=== PATIENT | male | born 1980 | race Two or more races ===

== ENCOUNTER 2024-10-16 12:19 | Emergency (ER) | payer MEDICARE, OTHER ==
[~2024-10-16] VITALS: Ht 160 cm; Wt 101.0 kg
--- NOTE | 2024-10-16 13:22 | ED.PDOC ---
Psychiatric HPI Comments 44 year old male brought in by executive pastry chef presents to the ED with chief complaint of mental health concern. Patient is being brought in by manager functional of facility where he lives in a home for parolees. Rampman reports that the patient has recently not been taking his medication appropriately, sometimes taking more or less than the instructions list. Rampman relays that the patient was noted to be more aggressive lately with the other residents and when everyone was drug tested, the patient tested positive for methamphetamine, despite not knowing how he was able to acquire it. Rampman states patient is on a "blackout" and is not allowed outside the home. Rampman notes patient is about to join a program where nursing staff can ensure he takes his medication on time and as directed, however, they required the patient to get a refill for his levothyroxine before admission. Patient reports that he misses his doses at times because he forgets. Patient is currently taking Suboxone, Divalproex, Benztropine Mesylate, Levothyroxine, Haloperidol, and Zyprexa. Patient denies any SI, HI, VH, or AH. Chief Complaint: Mental Health Time Seen by MD: 13:16 Primary Care Provider: NONE Reviewed Notes: Nurses Notes, Medications, Allergies Information Source: Patient Mode of Arrival: Ambulatory Severity: Able to Care for Self, Able to Control Self Severity of Pain: None Severity of Mental Status: Mild Severity of Symptoms: Mild Timing: Days Duration: Since onset Prehospital treatment: None Presents with: Bizarre Behavior Circumstance: Medical Clearance, Causing a Disturbance History of: Schizophrenia, Bipolar, Substance Abuse Past Medical History PAST MEDICAL HISTORY: Schizophrenia, Thyroid Past Medical History (Other): BPD Surgical History: Denies all surgeries Family History Family History: Reviewed,noncontributory to illness Social History Smoker: Cigarettes Alcohol: Occasionally Drugs: Methamphetamine Lives In: Assisted Care Constitutional: denies: chills, diaphoresis, fatigue, fever, malaise, sweats, weakness, others EENTM: denies: blurred vision, double vision, ear bleeding, ear discharge, ear drainage, ear pain, ear ringing, eye pain, eye redness, hearing loss, mouth pain, mouth swelling, nasal discharge, nose bleeding, nose congestion, nose pain, photophobia, tearing, throat pain, throat swelling, voice changes, others Respiratory: denies: cough, hemoptysis, orthopnea, SOB at rest, shortness of breath, SOB with excertion, stridor, wheezing, others Cardiovascular: denies: chest pain, dizzy spells, diaphoresis, Dyspnea on exertion, edema, irregular heart beat, left arm pain, lightheadedness, palpitations, PND, syncope, others Gastrointestinal: denies: abdomen distended, abdominal pain, blood streaked bowels, constipated, diarrhea, dysphagia, difficulty swallowing, hematemesis, melena, nausea, poor appetite, poor fluid intake, rectal bleeding, rectal pain, vomiting, others Genitourinary: denies: burning, dysuria, flank pain, frequency, hematuria, incontinence, penile discharge, penile sore, pain, testicle pain, testicle swelling, urgency, others Neurological: denies: dizziness, fainting, headache, left sided numbness, left sided weakness, numbness, paresthesia, pre-existing deficit, right sided numbness, right sided weakness, seizure, speech problems, tingling, tremors, weakness, others Musculoskeletal: denies: back pain, gout, joint pain, joint swelling, muscle pain, muscle stiffness, neck pain, others Integumetry: denies: bruises, change in color, change in hair/nails, dryness, laceration, lesions, lumps, rash, wounds, others Allergic/Immunocompromised: denies: Difficulty Healing, Frequent Infections, Hives, Itching, others Hematologic/Lymphatic: denies: anemia, blood clots, easy bleeding, easy bruising, swollen glands, others Endocrine: denies: excessive hunger, excessive sweating, excessive thirst, excessive urination, flushing, intolerance to cold, intolerance to heat, unexplained weight gain, unexplained weight loss, others Psychiatric: denies: anxiety, bipolar disorder, depression, hopeless, panic disorder, schizophrenia, sleepless, suicidal, others All Other Systems: Reviewed and Negative Physical Exam General Appearance: No Apparent Distress, Obese HEENT: Normal ENT Inspection, PERRL/EOMI Neck: Full Range of Motion, Non-Tender, Normal, Normal Inspection Respiratory: Chest Non-Tender, Lungs Clear, No Accessory Muscle Use, No Respiratory Distress, Normal Breath Sounds Cardiovascular: No Edema, No JVD, No Murmur, No Gallop, Normal Peripheral Pulses, Regular Rate/Rhythm Breast Exam: Deferred Gastrointestinal: No Organomegaly, Non Tender, No Pulsatile Mass, Normal Bowel Sounds, Soft Genitalia: Deferred Pelvic: Deferred Rectal: Deferred Extremities: No calf tenderness, Normal capillary refill, Normal inspection, Normal range of motion, Non-tender, No pedal edema Musculoskeletal : Apperance: Normal Neurologic: Alert, package delivery driver II-XII nml as Tested, No Motor Deficits, Normal Affect, Normal Mood, No Sensory Deficits Cerebellar Function: Normal Reflexes: Normal Skin: Dry, Normal Color, Warm Peripheral Pulses: 1+ carotid (R), 1+ carotid (L) Lymphatic: No Adenopathy Was a procedure done? Was a procedure done?: No Psych Differential Dx Psych. Differential Dx: Anxiety, Bipolar Disorder, Schizoprenia OD Differential Dx: Alcohol Abuse, Bipolar Disorder, Hallucinations, Schizophrenia, Substance Abuse Suicidal Differential Dx: Alcohol Abuse, Bipolar Disorder, Schizoprenia, Substance Abuse Intoxication Differential Dx: Hallucinations, Drug-Induced Psychosis, Electrolyte Imbalance, Schizophrenia, Substance Abuse Disorder, Thyrotoxicosis X-Ray, Labs, Meds, VS Vital Signs Date Time Temp Pulse Resp B/P (MAP) Pulse Ox O2 Delivery O2 Flow Rate FiO2 10/16/24 16:49 94 10/16/24 13:35 98.0 112 20 137/91 (106) 93 98.0 10/16/24 13:35 112 20 93 Room Air 10/16/24 12:39 97.7 119 16 120/92 (101) 95 97.7 Lab Test 10/16/24 17:06 10/16/24 13:29 10/16/24 13:28 Range/Units Troponin I High Sensitivity < 3 L </=54 ng/L White Blood Count 5.9 4.4-10.8 10^3/uL Red Blood Count 4.95 4.5-5.90 10^6/uL Hemoglobin 14.1 13.5-17.5 g/dL Hematocrit 42.4 41.0-53.0 % Mean Corpuscular Volume 85.7 80.0-100.0 fL Mean Corpuscular Hemoglobin 28.5 28.0-32.0 pg Mean Corpuscular Hemoglobin Concent 33.3 32.0-36.0 g/dL Red Cell Distribution Width 13.8 11.8-14.3 % Platelet Count 176 140-450 10^3/uL Mean Platelet Volume 8.8 6.9-10.8 fL Neutrophils (%) (Auto) 63.1 37.0-80.0 % Lymphocytes (%) (Auto) 19.5 10.0-50.0 % Monocytes (%) (Auto) 14.2 H 0.0-12.0 % Eosinophils (%) (Auto) 2.8 0.0-7.0 % Basophils (%) (Auto) 0.4 0.0-2.0 % Neutrophils # (Auto) 3.7 1.6-8.6 10 ^3/uL Lymphocytes # (Auto) 1.2 0.4-5.4 10 ^3/uL Monocytes # (Auto) 0.8 0-1.3 10 ^3/uL Eosinophils # (Auto) 0.2 0-0.8 10 ^3/uL Basophils # (Auto) 0 0-0.2 10 ^3/uL Nucleated Red Blood Cells 0.2 % Sodium Level 129 L 136-145 mmol/L Potassium Level 4.6 3.5-5.1 mmol/L Chloride Level 95 L 98-107 mmol/L Carbon Dioxide Level 26 20-31 mmol/L Anion Gap 8 5-15 Blood Urea Nitrogen 10 9-23 mg/dL Creatinine 1.17 0.700-1.30 mg/dL Glomerular Filtration Rate Calc 79 >90 mL/min BUN/Creatinine Ratio 8.5 L 10.0-20.0 Serum Glucose 528 *H 74-106 mg/dL Calcium Level 10.6 H 8.7-10.4 mg/dL Magnesium Level 2.1 1.6-2.6 mg/dL Total Bilirubin 0.4 0.2-1.0 mg/dL Aspartate Amino Transferase (AST) 28 13-40 U/L Alanine Aminotransferase (ALT) 48 H 7-40 U/L Alkaline Phosphatase 188 H 46-116 U/L Total Protein 8.7 H 5.7-8.2 g/dL Albumin 4.9 H 3.2-4.8 g/dL Thyroid Stimulating Hormone (TSH) 2.82 0.55-4.78 uIU/mL Urine Color Light-yellow Yellow Urine Clarity Clear Clear Urine pH 6.5 5.0-9.0 Urine Specific [place] 1.031 1.001-1.035 Urine Protein Negative Negative Urine Ketones Negative Negative Urine Blood Negative Negative /uL Urine Nitrite Negative Negative Urine Bilirubin Negative Negative Urine Urobilinogen Normal Negative mg/dL Urine Leukocyte Esterase Negative Negative /uL Urine RBC <1 0 - 3 /hpf Urine Microscopic WBC < 1 0-3 /HPF Urine Squamous Epithelial Cells None seen <5 /hpf Urine Bacteria None seen None Seen /hpf Urine Glucose 4+ H Normal mg/dL Urine Opiates Screen Neg NEGATIVE Urine Fentanyl Screen Neg NEGATIVE Urine Barbiturates Screen Neg NEGATIVE Urine Phencyclidine Screen Neg NEGATIVE Urine Amphetamines Screen Pos NEGATIVE Urine Benzodiazepines Screen Neg NEGATIVE Urine Cocaine Screen Neg NEGATIVE Urine Cannabinoids Screen Neg NEGATIVE Current Medications Medications (Trade) Dose Ordered Sig/Lizzeth Route Start Time Stop Time Status Last Admin Sodium Chloride 1,000 ml @ 1,000 mls/hr Q1H ONCE IV 10/16/24 14:30 10/16/24 15:29 DC 10/16/24 14:50 Insulin Human Lispro (HumaLOG) 10 units ONCE ONCE SC 10/16/24 16:30 10/16/24 16:31 DC 10/16/24 16:41 X-Ray, Labs, Meds, VS Comment Course in the emergency department uneventful patient came in because of medication refill butthis patient is schizophrenic and bipolar and has been using amphetamine which induced a bout of psychosis Patient taking multiple medications Suboxone divalproex benztropine levothyroxine haloperidol and Zyprexa CBC normal Urine shows 4+ glucose UDS positive for amphetamine CMP blood sugar 528 Magnesium 2.1 TSH 2.82 Patient will have refill of his TSH At this time in the emergency department patient is stable dr mendoza to follow Time of 1ST Reevaluation: 14:16 Reevaluation 1ST: Unchanged Time of 2ND Reevaluation: 18:17 Reevaluation 2ND: Improved Consultation: PCP, Psychiatry Patient Education/Counseling: Diagnosis, Treatment, Prognosis, Need For Follow Up Family Education/Counseling: Diagnosis, Treatment, Prognosis, Need For Follow Up Departure 1 Departure Time of Disposition: 18:17 Impression: Primary Impression: Drug-induced psychotic disorder with complication Additional Impressions: Amphetamine abuse Schizophrenia Bipolar disorder Hypothyroidism (acquired) New onset type 2 diabetes mellitus Morbid obesity due to excess calories Hyperglycemia Disposition: 30 STILL A PATIENT Condition: Fair e-Prescriptions Levothyroxine Sodium (Levoxyl) 50 Mcg Tab 1 TAB PO DAILY for 90 Days, #90 TAB 5 Refills Prov: ANNAMARIE MCHGUH MD 10/16/24 Discharged With: Self, Legal Guardian Critical Care Note Critical Care Time?: No Stability Stability form required: Yes Heart Score Heart Score: Heart Score Response (Comments) Value History Slightly Suspicious 0 EKG Normal 0 Age <45 0 Risk Factors 1 or 2 risk factors 1 Troponin Normal limit 0 Total 1 I personally scribed for ANNAMARIE MCHUGH MD ([email or web address]) on 10/16/24 at 13:22. Electronically submitted by Freddy Velazquez ([email or web address]). ANNAMARIE MCHUGH MD Oct 16, 2024 13:22
[2024-10-16 13:43] LABS: Basophils # (auto) 0 10 ^3/uL (0-0.2); Basophils % (auto) 0.4 % (0.0-2.0); Eosinophils # (auto) 0.2 10 ^3/uL (0-0.8); Eosinophils % (auto) 2.8 % (0.0-7.0); Hematocrit 42.4 % (41.0-53.0); Hemoglobin 14.1 g/dL (13.5-17.5); Lymphocytes # (auto) 1.2 10 ^3/uL (0.4-5.4); Lymphocytes % (auto) 19.5 % (10.0-50.0); Mean Corpuscular Hemoglobin 28.5 pg (28.0-32.0); Mean Corpuscular Hgb Conc. 33.3 g/dL (32.0-36.0); Mean Corpuscular Volume 85.7 fL (80.0-100.0); Monocytes # (auto) 0.8 10 ^3/uL (0-1.3); Monocytes % (auto) 14.2 % (0.0-12.0); Neutrophils # (auto) 3.7 10 ^3/uL (1.6-8.6); Neutrophils % (auto) 63.1 % (37.0-80.0); Nucleated Red Blood Cells % 0.2 %; Platelet Count (auto) 176 10^3/uL (140-450); Red Blood Cells 4.95 10^6/uL (4.5-5.90); Red Cell Distribution Width 13.8 % (11.8-14.3); White Blood Cell 5.9 10^3/uL (4.4-10.8)
[2024-10-16 13:49] LABS: Urine Bacteria None Seen /hpf (None Seen)
[2024-10-16 13:59] LABS: Anion Gap 8 (5-15); Aspartate Aminotransferase 28 U/L (13-40); Bilirubin, Total 0.4 mg/dL (0.2-1.0); Carbon Dioxide 26 mmol/L (20-31); Magnesium 2.1 mg/dL (1.6-2.6); Potassium 4.6 mmol/L (3.5-5.1)
[2024-10-16 14:10] LABS: Alanine Aminotransferase 48 U/L (7-40); Albumin 4.9 g/dL (3.2-4.8); Alkaline Phosphatase 188 U/L (46-116); Calcium 10.6 mg/dL (8.7-10.4); Chloride 95 mmol/L (98-107); Sodium 129 mmol/L (136-145); Total Protein 8.7 g/dL (5.7-8.2)
[2024-10-16 14:11] LABS: Glucose 528 mg/dL (74-106)
[2024-10-16 14:22] LABS: Amphetamine Screen, Urine Pos (NEGATIVE)
[2024-10-16 14:24] LABS: BUN/Creatinine Ratio 8.5 (10.0-20.0); Blood Urea Nitrogen 10 mg/dL (9-23)
[2024-10-16 14:28] LABS: Barbiturate Scree,Urine Neg (NEGATIVE); Benzodiazephine Screen, Urine Neg (NEGATIVE); Cannabinoid Screen, Urine Neg (NEGATIVE); Cocaine Screen, Urine Neg (NEGATIVE); Opiate Scree,Urine Neg (NEGATIVE); Phencyclidine Screen, Urine Neg (NEGATIVE); Urine Blood Negative /uL (Negative); Urine Clarity Clear (Clear); Urine Color Light-Yellow (Yellow); Urine Protein, UAD Negative (Negative); Urine Specific Gravity 1.031 (1.001-1.035); Urine Squamous Epithelial Cell None Seen /hpf (<5); Urine Urobilinogen Normal (Negative); Urine WBC < 1 /HPF (0-3); Urine pH 6.5 (5.0-9.0)
[2024-10-16] MEDS: SODIUM CHLORIDE 0.9% 1,000 ML IV ONE (14:50)
[2024-10-16] MEDS: INSULIN LISPRO (HUMAN) 100 UNITS/ML ML SC ONE (16:41)
--- NOTE | 2024-10-16 16:50 | ECG ---
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
--- NOTE | 2024-10-16 16:58 | DVH ---
XY CHEST TWO VIEWS ROUTINE CLINICAL HISTORY: Uncontrolled diabetes COMPARISON: None TECHNIQUE: Frontal and lateral view of the chest was obtained FINDINGS: Lines and Tubes: None Lungs: No focal consolidation. Pleura: No effusion. No pneumothorax. Cardiomediastinal contours: Unremarkable Bones: No acute osseous abnormality. IMPRESSION: 1. No acute cardiopulmonary disease. HS:Y
[2024-10-16] MEDS ORDERED: LEVO50TA61 PO (17:50)
[2024-10-16 18:20] VITALS: BP 124/76; PULSE 92; RESP 15; TEMP 98.8; O2SAT 98
--- NOTE | 2024-10-16 19:24 | DVHINCON2 ---
Date of Service if different f: Oct 16, 2024 Consultation ([facility]ANCE) Progress: Better Labs Laboratory Tests Test 10/16/24 13:28 10/16/24 13:29 10/16/24 17:06 Urine Color Light-yellow (Yellow) Urine Clarity Clear (Clear) Urine pH 6.5 (5.0-9.0) Urine Specific [place] 1.031 (1.001-1.035) Urine Protein Negative (Negative) Urine Ketones Negative (Negative) Urine Blood Negative /uL (Negative) Urine Nitrite Negative (Negative) Urine Bilirubin Negative (Negative) Urine Urobilinogen Normal mg/dL (Negative) Urine Leukocyte Esterase Negative /uL (Negative) Urine RBC <1 /hpf (0 - 3) Urine Microscopic WBC < 1 /HPF (0-3) Urine Squamous Epithelial Cells None seen /hpf (<5) Urine Bacteria None seen /hpf (None Seen) Urine Glucose 4+ mg/dL (Normal) Urine Opiates Screen Neg (NEGATIVE) Urine Fentanyl Screen Neg (NEGATIVE) Urine Barbiturates Screen Neg (NEGATIVE) Urine Phencyclidine Screen Neg (NEGATIVE) Urine Amphetamines Screen Pos (NEGATIVE) Urine Benzodiazepines Screen Neg (NEGATIVE) Urine Cocaine Screen Neg (NEGATIVE) Urine Cannabinoids Screen Neg (NEGATIVE) White Blood Count 5.9 10^3/uL (4.4-10.8) Red Blood Count 4.95 10^6/uL (4.5-5.90) Hemoglobin 14.1 g/dL (13.5-17.5) Hematocrit 42.4 % (41.0-53.0) Mean Corpuscular Volume 85.7 fL (80.0-100.0) Mean Corpuscular Hemoglobin 28.5 pg (28.0-32.0) Mean Corpuscular Hemoglobin Concent 33.3 g/dL (32.0-36.0) Red Cell Distribution Width 13.8 % (11.8-14.3) Platelet Count 176 10^3/uL (140-450) Mean Platelet Volume 8.8 fL (6.9-10.8) Neutrophils (%) (Auto) 63.1 % (37.0-80.0) Lymphocytes (%) (Auto) 19.5 % (10.0-50.0) Monocytes (%) (Auto) 14.2 % (0.0-12.0) Eosinophils (%) (Auto) 2.8 % (0.0-7.0) Basophils (%) (Auto) 0.4 % (0.0-2.0) Neutrophils # (Auto) 3.7 10 ^3/uL (1.6-8.6) Lymphocytes # (Auto) 1.2 10 ^3/uL (0.4-5.4) Monocytes # (Auto) 0.8 10 ^3/uL (0-1.3) Eosinophils # (Auto) 0.2 10 ^3/uL (0-0.8) Basophils # (Auto) 0 10 ^3/uL (0-0.2) Nucleated Red Blood Cells 0.2 % Sodium Level 129 mmol/L (136-145) Potassium Level 4.6 mmol/L (3.5-5.1) Chloride Level 95 mmol/L (98-107) Carbon Dioxide Level 26 mmol/L (20-31) Anion Gap 8 (5-15) Blood Urea Nitrogen 10 mg/dL (9-23) Creatinine 1.17 mg/dL (0.700-1.30) Glomerular Filtration Rate Calc 79 mL/min (>90) BUN/Creatinine Ratio 8.5 (10.0-20.0) Serum Glucose 528 mg/dL (74-106) Calcium Level 10.6 mg/dL (8.7-10.4) Magnesium Level 2.1 mg/dL (1.6-2.6) Total Bilirubin 0.4 mg/dL (0.2-1.0) Aspartate Amino Transf (AST/SGOT) 28 U/L (13-40) Alanine Aminotransferase (ALT/SGPT) 48 U/L (7-40) Alkaline Phosphatase 188 U/L (46-116) Total Protein 8.7 g/dL (5.7-8.2) Albumin 4.9 g/dL (3.2-4.8) Thyroid Stimulating Hormone (TSH) 2.82 uIU/mL (0.55-4.78) Troponin I High Sensitivity < 3 ng/L (</=54) Appetite: Fair Side effects of medications: No Appearance: Older than stated age Psychomotor activity: WNL Behavioral: Cooperative Eye contact: Appropriate Speech: WNL Affect: Flat Mood: Euthymic Thought processes: Linear/Goal-directed, [place] Thought content: WNL Suicidal ideations: Absent Homicidal ideations: Absent Orientation: Person, Place, Time, Situation Memory intact: Recent Intellect: Average Abstractability: [place] Concentration: Adequate Attention: Limited Judgement: Limited Insight: Limited Vitals Vital Signs Date Time Temp Pulse Resp B/P (MAP) Pulse Ox O2 Delivery O2 Flow Rate FiO2 10/16/24 18:20 98.8 92 15 124/76 (92) 98 98.8 10/16/24 13:35 Room Air Treatment plan discussed: With staff Medication adjusted: No Labs ordered: No Psychotherapy provided: Yes Type: Voluntary Diagnosis: Schizophrenia. 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 Pt is supposed to be on a blackout - meaning he cannot be outside the facility and yet he is able to access meth. The pt is on a number of meds which include levothyroxine, suboxone, haldol, cogentin and zyprexa but he doesn't know the dosages. The dye house wheel operator seems to be able to know what the doses of these meds ought to be. Dr. Jones has agreed to provide prescriptions for these meds once the doses are confirmed by the ER District Scout Executive who will call the [facility] to get that info. Regarding concerns of psychiatric decompensation and re-appearance of psychosis - The pt appears to be completely normal, without any psychosis, internal preoccupation, normal mood, denies SI. HI and aVH and is logical and goal directed, albeit somewhat concrete. There does not appear to be a reason ti initiate a 5150 or admit pt to inpatient psychiatry at this time. History of Present Illness Reason for Consult : To assess for drug induced psychosis, schizophrenia/bipolar disorder. HPI : From Dr. Eddy's note "Patient is being brought in by material requirements planning manager of facility where he lives in a home for parolees. Earth Science Teacher reports that the patient has recently not been taking his medication appropriately, sometimes taking more or less than the instructions list. Earth Science Teacher relays that the patient was noted to be more aggressive lately with the other residents and when everyone was drug tested, the patient tested positive for methamphetamine, despite not knowing how he was able to acquire it." Pt says that he ran out of pills he only got 30 day supply from the [facility] after discharge from there a few weeks ago. Pt is minimizing methamphetamine use, then reluctantly admits to using it because "some guys offered it". Pt currently denies A/V hallucinations, SI, HI. Pt has a diagnosis of schizophrenia. Reports he sleeps a lot. Past Psychiatric History : Pt recently DC from [facility] was in there from 04/29/24 until last month. 3 times in lifetime. Denies any SA or SH behaviors. Pt admits to driving while intoxicated years ago. Past Medical History : Hypothyroid and diabetes. Social History : Living in a longterm house, denies any legal issues. 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 No family or supports. Assessment/Diagnosis/Plan Reviewed: Consults, Care Plan, Labs, Medications HARRY JOHNSON MD Oct 16, 2024 19:24
--- NOTE | 2024-10-16 20:49 | ED.PDOC ---
Departure 1 Departure Time of Disposition: 20:48 (Patient cleared for discharge by psychiatry. We will discharge patient home with outpatient follow up) Impression: Primary Impression: Drug-induced psychotic disorder with complication Additional Impressions: Bipolar disorder Qualified Codes: F31.9 - Bipolar disorder, unspecified Hyperglycemia Schizophrenia Qualified Codes: F20.9 - Schizophrenia, unspecified New onset type 2 diabetes mellitus Morbid obesity due to excess calories Hypothyroidism (acquired) Amphetamine abuse Disposition: HOME / SELF CARE / HOMELESS Condition: Stable Additional Instructions: It is important to follow up with the regular doctors and continue to take your regular medications. e-Prescriptions Levothyroxine Sodium (Levoxyl) 50 Mcg Tab 1 TAB PO DAILY for 90 Days, #90 TAB 5 Refills Prov: ANNAMARIE MCHUGH MD 10/16/24 Discharged With: Self, Legal Guardian PB MCMAHAN MD Oct 16, 2024 20:49
== END 2024-10-16 21:49 | disposition home or self-care (01) ==
LOC: ER 12:19
DX: F19.959 Other psychoactive substance use, unspecified with psychoactive substance-induced psychotic disorder, unspecified (principal); F15.10 Other stimulant abuse, uncomplicated; F20.9 Schizophrenia, unspecified; F31.9 Bipolar disorder, unspecified; E03.9 Hypothyroidism, unspecified; E11.65 Type 2 diabetes mellitus with hyperglycemia; E66.01 Morbid (severe) obesity due to excess calories; F17.210 Nicotine dependence, cigarettes, uncomplicated; Z76.0 Encounter for issue of repeat prescription; Z79.899 Other long term (current) drug therapy
CPT/HCPCS: 36415; 71046; 80053; 80307; 81001; 83735; 84443; 84484; 85025; 93005; 96360; 99285; J1815; J7030